=== PATIENT | female | born 1950 | race Caucasian/White ===

== ENCOUNTER → 2020-10-03 10:12 | Outpatient (CLI) | payer MEDICARE, OTHER, SELFPAY ==
[2020-10-03] MEDS: COVID-19 VACC #1, MRNA(MOD) 100 MCG/0.5 ML VIAL IM (10:16)
== END ==
PROVIDERS: PCP Family Medicine; Visit Provider Internal Medicine
DX: Z23 Encounter for immunization (principal)
CPT/HCPCS: 0011A; 91301

== ENCOUNTER → 2020-10-31 10:39 | Outpatient (CLI) | payer MEDICARE, OTHER, SELFPAY ==
[2020-10-31] MEDS: COVID-19 VACC #2, MRNA(MOD) 100 MCG/0.5 ML VIAL IM (10:45)
== END ==
PROVIDERS: PCP Family Medicine; Visit Provider Internal Medicine
DX: Z23 Encounter for immunization (principal)
CPT/HCPCS: 0012A; 91301

== ENCOUNTER → 2021-06-03 06:59 | Outpatient (CLI) | payer MEDICARE, OTHER, SELFPAY | PROVIDERS: PCP Family Medicine; Visit Provider Physician Assistant | DX: R30.9 Painful micturition, unspecified (principal) | CPT/HCPCS: 87086 ==

== ENCOUNTER → 2022-03-13 15:26 | Outpatient (CLI) | payer OTHER, SELFPAY | PROVIDERS: PCP Family Medicine; Visit Provider Physician Assistant | DX: R30.0 Dysuria (principal) | CPT/HCPCS: 87077; 87086; 87186 ==

== ENCOUNTER 2024-02-04 19:36 | Emergency (ER) | payer OTHER, MEDICARE, SELFPAY ==
[2024-02-04 19:42] VITALS: BP 194/98; PULSE 88; RESP 18; TEMP 36.9; O2SAT 98; BMI 18.8
--- NOTE | 2024-02-04 21:34 | PC.NURSE ---
pt states she noticed an out break on her right labia a couple of days and thought it was a herpes outbreak but now the labia is red and swollen, with a sore to the upper area and a rash that has spread in the groin and to the top of the thigh, pt state it has never spread down her leg before, rash is noted red, not raised and pale red in color pt state the rash is itchy, as all of her outbreaks are just before they become painful. denies any vaginal d/c
--- NOTE | 2024-02-04 22:02 | ED_ITS ---
HPI - Skin/Abscess/Foreign Bdy General Chief complaint: Skin/Abscess/Foreign Body Stated complaint: rash on labia/spreading down leg Time Seen by Provider: 02/04/24 21:42 Source: patient Mode of arrival: Ambulatory Limitations: no limitations History of Present Illness HPI narrative: 73-year-old female with prior remote history of herpes outbreak followed by a secondary couple years ago. Patient has not had frequent infections. She states they have always been intravaginal, she states this infection started on her right outer labia, it is tracked down the labia and then into her right groin. Extend to couple cm. There is some small little pustules but has not really had any active drainage. There has been a little bit of clear weepage of the area it started at but no open wound no real fluid collection or fluctuance. It has not particularly indurated. She describes it as itchy, she states that is very similar to her prior outbreaks. She states then it will typically progress to painful but has not at this point. She has not had fevers or chills no nausea or vomiting, no pelvic pain, she has not had any urinary symptoms. She has not had any new GI issues. She is not on any daily prescription medications. She had a leftover prescription from acyclovir from a prior outbreak that she never used so she has this and has been taking it. Patient was concerned because of the location and spread was different than prior episodes. Related Data Home Medications Medication Instructions Recorded Confirmed ascorbic acid (vitamin C) 1,000 mg 1,000 mg PO DAILY 02/16/22 12/22/23 tablet (Vitamin C) cholecalciferol (vitamin D3) 50 50 mcg PO DAILY 02/16/22 12/22/23 mcg (2,000 unit) capsule (Vitamin D3) vitamin B complex 1 tab PO DAILY 02/16/22 12/22/23 omega-3 fatty acids 500 mg capsule 500 mg PO DAILY 03/13/22 12/22/23 Previous Rx's Medication Instructions Recorded doxycycline hyclate 100 mg tablet 100 mg PO BID #20 tabs 02/04/24 Allergies Allergy/AdvReac Type Severity Reaction Status Date / Time No Known Drug Allergies Allergy Verified 12/22/23 10:55 Review of Systems Review of Systems ROS Unobtainable: All systems reviewed & are unremarkable except as noted in HPI and below Patient History Medical History Genital HSV Vision disorder Plantar warts (~2009) Allergies Scarlet fever (~1959) Mumps History of recurrent ear infection Herpes (~1970) Kidney stones Frequent UTI Family history of Alzheimer's disease White coat syndrome without hypertension Prediabetes Hyperlipidemia Surgical History Anesthesia Family History Father Prostate cancer History of heart disease Hypertension Hyperlipidemia Stroke CKD (chronic kidney disease) Mother Melanoma Sister History of removal of skin mole Hyperlipidemia History of bipolar disorder Sister Prediabetes Hyperlipidemia History of bipolar disorder Sister Down syndrome Grandfather No problems noted. Grandmother No problems noted. Grandfather No problems noted. Grandmother No problems noted. Sister Bipolar I disorder with higinio Cancer Hyperlipidemia Non Hodgkin's lymphoma Social History Smoking Status: Never smoker Smoking Status: Never smoker alcohol intake frequency: holidays/special occasions only Substance Use Type: does not use Exam Narrative Exam Narrative: GENERAL: Alert and oriented x three, thin, well-appearing female in mild distress. HEENT: Head normocephalic, atraumatic, EOMI, pupils reactive, face symmetric, moist mucous membranes NECK: Supple, full range of motion CARDIOVASCULAR: Regular rate and rhythm without murmurs, rubs or gallops. RESPIRATORY: Breath sounds equal bilaterally, no wheezes rales or rhonchi. ABDOMEN: Soft, nontender. Normoactive bowel sounds all 4 quadrants. No guarding or rebound, rigidity, no mass : No CVA tenderness. Female: Patient has some erythema with a little bit of what appears to be dried serous fluid at the top of the right outer labia there is erythema of the right labia extending about 3 cm beyond. With a few small dots extending beyond the edge of the rash but has a clear demarcation to the edge. There is no induration. The area is nontender. There is no other vesicles, there are no other pustules noted. There has no warmth to the area. No involvement of the left side or intravaginally. No vaginal bleeding, no discharge EXTREMITIES: Normal range of motion, no clubbing or edema. Neurovascularly intact NEUROLOGICAL: Cranial nerves II through XII grossly intact. Moving all extremities SKIN: Warm, dry, no petechiae, no rashes or lesions. Initial Vital Signs Initial Vital Signs: Vital Signs Temperature 98.5 F 02/04/24 19:42 Pulse Rate 88 02/04/24 19:42 Respiratory Rate 18 02/04/24 19:42 Blood Pressure 194/98 H 02/04/24 19:42 Pulse Oximetry 98 02/04/24 19:42 Oxygen Delivery Method Room Air 02/04/24 19:42 Course Orders Ordered: ED Orders 02/04/24 22:14 HSV Culture Without Typing Stat Vital Signs Vital signs: Vital Signs - 8 hr 02/04/24 22:37 Pulse Rate 84 Respiratory Rate 16 Blood Pressure 184/88 H Pulse Oximetry 100 Oxygen Delivery Method Room Air MDM - Skin/Abscess/Foreign Bdy MDM Narrative Medical decision making narrative: Discussed with patient she does have a little bit of serous drainage, could still be herpes labialis, she has only had a couple doses she started it last night. But did take viral culture to swab for HSV, there is no other drainage that would be helpful for genital culture. Patient was given a prescription for oral antibiotic if the rash continues to extend down the leg and we discussed reasons went to start this. We also discussed return precautions. All questions answered. Patient was aware swabs send out and does take some time to return. Discharge Plan Departure Patient Disposition: Home Clinical Impression: Herpes genitalis Instructions: DI for Genital Herpes Activity Restrictions/Additional Instructions: On viral swab was sent to confirm that you have herpes virus. This is currently pending. Continue with your acyclovir as prescribed. If the rash continues to spread down your leg you can start oral antibiotic for potential bacterial infection. Prescription was sent to [facility] in [place]. If you develop fevers, if you are rashes spreading rapidly, if you have any fluid collection or purulent drainage, pelvic pain, nausea or vomiting or other new or concerning changes please return to the ED. Prescriptions: New doxycycline hyclate 100 mg tablet 100 mg PO BID Qty: 20 0RF No Action omega-3 fatty acids 500 mg capsule 500 mg PO DAILY ascorbic acid (vitamin C) [Vitamin C] 1,000 mg Tablet 1,000 mg PO DAILY vitamin B complex Tablet 1 tab PO DAILY cholecalciferol (vitamin D3) [Vitamin D3] 50 mcg (2,000 unit) Capsule 50 mcg PO DAILY Referrals: Jed Mendez ARNP [Primary Care Provider] - Stand Alone Forms: Patient Portal/API
[2024-02-04 22:37] VITALS: BP 184/88; PULSE 84; RESP 16; O2SAT 100
== END 2024-02-04 22:38 | disposition home or self-care (01) ==
PROVIDERS: Emergency Provider Emergency Medicine; PCP Registered Nurse Diabetes Educator
DX: A60.00 Herpesviral infection of urogenital system, unspecified (principal)
CPT/HCPCS: 87255; 99281; 99283

== ENCOUNTER 2024-02-06 11:13 | Emergency (ER) | payer OTHER, MEDICARE, SELFPAY ==
[2024-02-06 11:56] VITALS: BP 178/83; PULSE 85; RESP 18; TEMP 36.8; O2SAT 98; BMI 18.8
--- NOTE | 2024-02-06 14:59 | PC.NURSE ---
This RN called for patient to come to a room and didn't find patient in the lobby. This RN called patient and she stated she left at 14:15 and scheduled an appointment with dining car conductor tomorrow instead.
== END 2024-02-06 14:15 | disposition left against medical advice (07) ==
PROVIDERS: Emergency Provider Student in an Organized Health Care Education/Training Program; PCP Registered Nurse Diabetes Educator
DX: A60.00 Herpesviral infection of urogenital system, unspecified (principal)
CPT/HCPCS: 99281